=== PATIENT | female | born 1960 | race Caucasian/White ===

== ENCOUNTER 2021-02-20 15:07 | Inpatient (IN) ==
[2021-02-20] MEDS ORDERED: DEXTROSE 50% 25 GM/50 ML VIAL IV PRN (19:05)
[2021-02-20] MEDS ORDERED: GLUCAGON 1 MG VIAL IM PRN (19:05)
[2021-02-20] MEDS: HEPARIN 5,000 UNIT/1 ML VIAL SUBCUT SCH (21:52)
[2021-02-20] MEDS: SODIUM CHLORIDE 0.9% 1,000 ML IV SCH (21:52)
[2021-02-20] MEDS: ACETAMINOPHEN 325 MG TABLET PO PRN (21:53)
[2021-02-21 03:57] LABS: Basophils % 0.2 % (0.0-0.8); Eosinophils % 0.2 % (0.00-10.9); Hematocrit 23.1 VOL% (35.7-47.0); Hemoglobin 7.4 GM/DL (12.0-16.0); Immature Granulocytes % 0.2 %; Immature Granulocytes Absolute 0.01 #; Lymphocytes # 0.3 10*3/uL (1.4-4.0); Lymphocytes % 8.1 % (21.3-54.2); Mean Corpuscular Volume 105.5 FL (87-102); Mean Platelet Volume 10.9 FL (9.6-12.0); Monocytes % 7.6 % (1.7-12.7); Neutrophils % 83.7 % (38.7-73.9); Platelet Count 135 T/CUMM (130-400); Red Blood Count 2.19 MC/CUMM (3.8-5.5); Red Cell Distribution Width 15.2 % (9.3-17.3); White Blood Count 4.2 T/CUMM (4-12)
[2021-02-21 04:21] LABS: Hypochromasia 1+; Microcytosis 1+; Platelet Estimate Adequate
[2021-02-21 05:01] LABS: Alanine Aminotransferase 28 U/L (13-56); Alkaline Phosphatase 101 U/L (45-117); Aspartate Amino Transferase 39 U/L (0-37); Blood Urea Nitrogen 14 MG/DL (7-18); Calcium 7.5 MG/DL (8.5-10.1); Carbon Dioxide 32 MMOL/L (21-32); Glucose 71 MG/DL (74-106); Osmolality,Calculated 275.5 MOS/KG (273-304); Potassium 3.6 MMOL/L (3.5-5.1); Sodium 139 MMOL/L (136-145); Total Protein 4.4 G/DL (6.4-8.2)
[2021-02-21 05:02] LABS: Estimated Glom Filtration Rate 120 ML/MIN
[2021-02-21 08:44] LABS: % Iron Saturation 55.6 % (18-50); Ferritin 763.4 ng/ml (8-252)
[2021-02-21 08:52] LABS: Folate 3.4 NG/ML (5.38-24.0)
[2021-02-21] MEDS: HEPARIN 5,000 UNIT/1 ML VIAL SUBCUT SCH ×2 (09:29→22:23)
[2021-02-21] MEDS: ACETAMINOPHEN 325 MG TABLET PO PRN (10:22)
[2021-02-21] MEDS ORDERED: FOLIC ACID 1 MG TABLET PO SCH (11:00)
[2021-02-21] MEDS: FOLIC ACID 1 MG TABLET PO SCH (12:33)
[2021-02-21] MEDS: MULTIVITAMIN LIQUID (CENTRUM) 60 ML BOTTLE PO SCH (12:34)
[2021-02-21] MEDS ORDERED: MULTIVITAMIN LIQUID (CENTRUM) 60 ML BOTTLE PO SCH (14:00)
[2021-02-21] MEDS: THIAMINE 100 MG TABLET PO SCH (14:00)
[2021-02-21] MEDS ORDERED: ALUM/MAG/SIMETH/LIDO VISC 1:1 30 ML BOTTLE PO ONE (14:26)
[2021-02-22 06:09] LABS: Basophils % 0.4 % (0.0-0.8); Eosinophils % 0.2 % (0.00-10.9); Hematocrit 22.7 VOL% (35.7-47.0); Hemoglobin 7.2 GM/DL (12.0-16.0); Immature Granulocytes % 0.4 %; Immature Granulocytes Absolute 0.02 #; Lymphocytes # 0.5 10*3/uL (1.4-4.0); Lymphocytes % 10.5 % (21.3-54.2); Mean Corpuscular HGB Conc 31.7 GM/DL (32-36); Mean Corpuscular Volume 105.6 FL (87-102); Monocytes % 7.6 % (1.7-12.7); Neutrophils % 80.9 % (38.7-73.9); Platelet Count 159 T/CUMM (130-400); Red Blood Count 2.15 MC/CUMM (3.8-5.5); Red Cell Distribution Width 15.2 % (9.3-17.3); White Blood Count 4.6 T/CUMM (4-12)
[2021-02-22 07:09] LABS: Alanine Aminotransferase 31 U/L (13-56); Albumin 1.1 G/DL (3.4-5.0); Alkaline Phosphatase 108 U/L (45-117); Aspartate Amino Transferase 38 U/L (0-37); Blood Urea Nitrogen 15 MG/DL (7-18); Calcium 7.5 MG/DL (8.5-10.1); Carbon Dioxide 31 MMOL/L (21-32); Estimated Glom Filtration Rate 109 ML/MIN; Glucose 68 MG/DL (74-106); Osmolality,Calculated 277.4 MOS/KG (273-304); Sodium 140 MMOL/L (136-145); Total Protein 4.5 G/DL (6.4-8.2)
[2021-02-22] MEDS: PANTOPRAZOLE 40 MG TABLET PO SCH (08:45)
[2021-02-22] MEDS: HEPARIN 5,000 UNIT/1 ML VIAL SUBCUT SCH ×2 (08:45→21:09)
[2021-02-22] MEDS: THIAMINE 100 MG TABLET PO SCH (08:45)
[2021-02-22] MEDS: FOLIC ACID 1 MG TABLET PO SCH (08:45)
[2021-02-22] MEDS: MULTIVITAMIN LIQUID (CENTRUM) 60 ML BOTTLE PO SCH (09:41)
[2021-02-22] MEDS: IBUPROFEN 100 MG/5 ML UDCUP PO PRN ×2 (09:47→16:40)
[2021-02-22] MEDS ORDERED: ALBUTEROL 0.63 MG/3 ML NEB RESP TX ONE (11:11)
[2021-02-22] MEDS ORDERED: traMADol 50 MG TABLET PO PRN (11:41)
[2021-02-22] MEDS ORDERED: LOPERAMIDE 2 MG CAPSULE PO PRN ×2 (11:41)
[2021-02-22] MEDS ORDERED: ALPRAZolam 0.25 MG TABLET PO PRN (11:41)
[2021-02-22] MEDS ORDERED: MAGNESIUM HYDROXIDE SUSP 30 ML UDCUP PO PRN (11:41)
[2021-02-22] MEDS ORDERED: LACTULOSE 20 GM/30 ML UDCUP PO PRN (11:41)
[2021-02-22] MEDS ORDERED: ACETAMINOPHEN 325 MG TABLET PO PRN (11:41)
[2021-02-22] MEDS ORDERED: PROMETHAZINE INJ 25 MG in SODIUM CHLORIDE 0.9% 50 ML IV PRN (11:41)
[2021-02-22] MEDS ORDERED: guaiFENesin 200 MG/10 ML UDCUP PO PRN (11:41)
[2021-02-22] MEDS ORDERED: ALUMINUM/MAGNES/SIMETH MAX STR 30 ML UDCUP PO PRN (11:41)
[2021-02-22] MEDS ORDERED: chlorproMAZINE INJ 25 MG in SODIUM CHLORIDE 0.9% 100 ML IV PRN (11:41)
[2021-02-22] MEDS ORDERED: MYLANTA/LIDO VISC 2:1 300 ML BOTTLE SWISH/SPIT PRN (11:41)
[2021-02-22] MEDS ORDERED: MYLANTA/LIDO VISC 2:1 300 ML BOTTLE SWISH/SWAL PRN (11:41)
[2021-02-22] MEDS ORDERED: chlorproMAZINE INJ 50 MG in SODIUM CHLORIDE 0.9% 100 ML IV PRN (11:41)
[2021-02-22] MEDS ORDERED: diphenhydrAMINE CAP 25 MG CAPSULE PO PRN (11:41)
[2021-02-22] MEDS: ONDANSETRON 4 MG/2 ML VIAL IV PRN (12:18)
[2021-02-22] MEDS: ALBUTEROL 0.63 MG/3 ML NEB RESP TX SCH ×2 (13:03→19:40)
[2021-02-22] MEDS: SODIUM CHLORIDE 0.9% 1,000 ML IV SCH ×2 (19:33→21:18)
[2021-02-22] MEDS: TEMAZEPAM 7.5 MG CAPSULE PO PRN (21:09)
[2021-02-23 03:54] LABS: Basophils % 0.4 % (0.0-0.8); Eosinophils % 0.4 % (0.00-10.9); Hematocrit 23.9 VOL% (35.7-47.0); Hemoglobin 7.6 GM/DL (12.0-16.0); Immature Granulocytes % 0.6 %; Immature Granulocytes Absolute 0.03 #; Lymphocytes # 0.4 10*3/uL (1.4-4.0); Lymphocytes % 7.1 % (21.3-54.2); Mean Corpuscular HGB Conc 31.8 GM/DL (32-36); Mean Corpuscular Volume 106.2 FL (87-102); Mean Platelet Volume 10.4 FL (9.6-12.0); Monocytes % 7.5 % (1.7-12.7); Platelet Count 179 T/CUMM (130-400); Red Blood Count 2.25 MC/CUMM (3.8-5.5); Red Cell Distribution Width 15.1 % (9.3-17.3); White Blood Count 5.1 T/CUMM (4-12)
[2021-02-23 04:20] LABS: Albumin 1.2 G/DL (3.4-5.0); Bilirubin,Total 0.5 MG/DL (0.2-1.0); Calcium 7.1 MG/DL (8.5-10.1); Osmolality,Calculated 286.8 MOS/KG (273-304); Potassium 3.8 MMOL/L (3.5-5.1); Total Protein 4.8 G/DL (6.4-8.2)
[2021-02-23] MEDS: IBUPROFEN 100 MG/5 ML UDCUP PO PRN ×2 (05:05→21:37)
[2021-02-23] MEDS: ALBUTEROL 0.63 MG/3 ML NEB RESP TX SCH ×3 (07:33→19:20)
[2021-02-23] MEDS: THIAMINE 100 MG TABLET PO SCH (09:21)
[2021-02-23] MEDS: HEPARIN 5,000 UNIT/1 ML VIAL SUBCUT SCH (09:21)
[2021-02-23] MEDS: FOLIC ACID 1 MG TABLET PO SCH (09:21)
[2021-02-23] MEDS: MULTIVITAMIN LIQUID (CENTRUM) 60 ML BOTTLE PO SCH (09:21)
[2021-02-23] MEDS: PANTOPRAZOLE 40 MG TABLET PO SCH (09:21)
[2021-02-23 13:48] LABS: Barbiturates Screen,Urine Negative (Negative); Benzodiazepines Screen,Urine Negative (Negative); Cannabinoid Screen,Urine Negative (Negative); Opiate Screen,Urine Negative (Negative); Phencyclidine Screen,Urine Negative (Negative)
[2021-02-23] MEDS: TEMAZEPAM 7.5 MG CAPSULE PO PRN (21:37)
[2021-02-23] MEDS: SODIUM CHLORIDE 0.9% 1,000 ML IV SCH (21:38)
[2021-02-24 02:50] LABS: Basophils % 0.2 % (0.0-0.8); Hematocrit 22.7 VOL% (35.7-47.0); Hemoglobin 7.2 GM/DL (12.0-16.0); Immature Granulocytes % 0.5 %; Immature Granulocytes Absolute 0.06 #; Lymphocytes # 0.3 10*3/uL (1.4-4.0); Mean Corpuscular HGB Conc 31.7 GM/DL (32-36); Mean Corpuscular Volume 107.6 FL (87-102); Mean Platelet Volume 10.5 FL (9.6-12.0); Monocytes % 4.1 % (1.7-12.7); Neutrophils % 92.2 % (38.7-73.9); Platelet Count 155 T/CUMM (130-400); Red Blood Count 2.11 MC/CUMM (3.8-5.5); Red Cell Distribution Width 15.2 % (9.3-17.3); White Blood Count 11.2 T/CUMM (4-12)
[2021-02-24 03:12] LABS: Alanine Aminotransferase 22 U/L (13-56); Alkaline Phosphatase 111 U/L (45-117); Aspartate Amino Transferase 27 U/L (0-37); Bilirubin,Total < 0.39 MG/DL (0.2-1.0); Blood Urea Nitrogen 19 MG/DL (7-18); Calcium 7.6 MG/DL (8.5-10.1); Carbon Dioxide 32 MMOL/L (21-32); Estimated Glom Filtration Rate 109 ML/MIN; Glucose 94 MG/DL (74-106); Osmolality,Calculated 287.8 MOS/KG (273-304); Potassium 3.6 MMOL/L (3.5-5.1); Sodium 144 MMOL/L (136-145); Total Protein 4.5 G/DL (6.4-8.2)
[2021-02-24 03:36] LABS: Lymphocytes 2 % (20-55); Platelet Estimate Normal; Segmented Neutrophils 98 % (50-85); Total Cells Counted 100
[2021-02-24 03:37] LABS: Anisocytosis 1+; Hypochromasia 1+; Macrocytosis 2+
[2021-02-24 03:38] LABS: Stomatocytes Few
[2021-02-24] MEDS: ALBUTEROL 0.63 MG/3 ML NEB RESP TX SCH ×3 (07:35→20:29)
[2021-02-24] MEDS: SODIUM CHLORIDE 0.9% 1,000 ML IV SCH ×5 (07:46→20:30)
[2021-02-24] MEDS ORDERED: LACTATED RINGERS 1,000 ML IV SCH (08:00)
[2021-02-24] MEDS ORDERED: ALBUMIN 5% 12.5 GM/250 ML VIAL IV ONE (11:56)
[2021-02-24] MEDS: MULTIVITAMIN LIQUID (CENTRUM) 60 ML BOTTLE PO SCH (13:56)
[2021-02-24] MEDS: THIAMINE 100 MG TABLET PO SCH (13:57)
[2021-02-24] MEDS: PANTOPRAZOLE 40 MG TABLET PO SCH (13:57)
[2021-02-24] MEDS ORDERED: PHENYLEPHRINE 1 MG/10 ML SYRINGE IV ONE (14:01)
[2021-02-24] MEDS ORDERED: propofoL 200 MG/20 ML VIAL IV ONE (14:01)
[2021-02-24] MEDS ORDERED: LIDOCAINE 2% 5 ML VIAL ONE (14:01)
[2021-02-24] MEDS ORDERED: ETOMIDATE 20 MG/10 ML VIAL IV ONE ×2 (14:01→14:21)
[2021-02-24] MEDS: PANTOPRAZOLE 40 MG VIAL IV SCH (16:52)
[2021-02-24] MEDS: CLINDAMYCIN INJ 600 MG in PREMIX 1 EACH IV SCH (16:52)
[2021-02-24] MEDS ORDERED: ACETAMINOPHEN 325 MG SUPP RECTAL PRN (16:54)
[2021-02-24] MEDS ORDERED: ACETAMINOPHEN IV SCH (17:00)
[2021-02-24] MEDS: AMPICILLIN/SULBACTAM 1,500 MG in SODIUM CHLORIDE 0.9% 100 ML IV SCH (18:56)
[2021-02-24] MEDS: FOLIC ACID 1 MG TABLET PO SCH (20:30)
[2021-02-24] MEDS ORDERED: FOLIC ACID 1 MG TABLET PO SCH (21:00)
[2021-02-25] MEDS: CLINDAMYCIN INJ 600 MG in PREMIX 1 EACH IV SCH ×3 (01:50→17:45)
[2021-02-25] MEDS: AMPICILLIN/SULBACTAM 1,500 MG in SODIUM CHLORIDE 0.9% 100 ML IV SCH ×3 (02:20→18:46)
[2021-02-25] MEDS: SODIUM CHLORIDE 0.9% 1,000 ML IV SCH (06:25)
[2021-02-25] MEDS: ALBUTEROL 0.63 MG/3 ML NEB RESP TX SCH ×3 (07:01→19:29)
[2021-02-25] MEDS: PANTOPRAZOLE 40 MG VIAL IV SCH (08:22)
[2021-02-25 09:40] LABS: Hematocrit 22.2 VOL% (35.7-47.0); Hemoglobin 6.8 GM/DL (12.0-16.0); Immature Granulocytes % 0.5 %; Immature Granulocytes Absolute 0.04 #; Lymphocytes # 0.2 10*3/uL (1.4-4.0); Lymphocytes % 1.9 % (21.3-54.2); Mean Corpuscular HGB Conc 30.6 GM/DL (32-36); Mean Corpuscular Volume 110.4 FL (87-102); Mean Platelet Volume 10.8 FL (9.6-12.0); Monocytes % 4.2 % (1.7-12.7); Neutrophils % 93.4 % (38.7-73.9); Platelet Count 158 T/CUMM (130-400); Red Blood Count 2.01 MC/CUMM (3.8-5.5); Red Cell Distribution Width 15.1 % (9.3-17.3)
[2021-02-25 10:05] LABS: Lymphocytes 1 % (20-55); Platelet Estimate Adequate; Polychromasia Slight; Segmented Neutrophils 94 % (50-85); Total Cells Counted 100
[2021-02-25 10:06] LABS: Stomatocytes Few
[2021-02-25 10:27] LABS: Alanine Aminotransferase 26 U/L (13-56); Albumin 1.3 G/DL (3.4-5.0); Alkaline Phosphatase 99 U/L (45-117); Aspartate Amino Transferase 35 U/L (0-37); Bilirubin,Total < 0.39 MG/DL (0.2-1.0); Blood Urea Nitrogen 16 MG/DL (7-18); Calcium 7.3 MG/DL (8.5-10.1); Carbon Dioxide 27 MMOL/L (21-32); Glucose 68 MG/DL (74-106); Osmolality,Calculated 288.6 MOS/KG (273-304); Potassium 3.3 MMOL/L (3.5-5.1); Sodium 146 MMOL/L (136-145); Total Protein 4.4 G/DL (6.4-8.2)
[2021-02-25 10:28] LABS: Estimated Glom Filtration Rate 120 ML/MIN
[2021-02-25] MEDS ORDERED: SODIUM CHLORIDE 0.9% 1,000 ML IV PRN (11:05)
[2021-02-25] MEDS: POTASSIUM CHLORIDE RIDER 10 MEQ in PREMIX 1 EACH IV SCH ×2 (11:34→12:34)
[2021-02-25] MEDS: MULTIVITAMIN LIQUID (CENTRUM) 60 ML BOTTLE PO SCH (11:55)
[2021-02-25] MEDS: THIAMINE 100 MG TABLET PO SCH (11:55)
[2021-02-25] MEDS: MEGESTROL 400 MG/10 ML UDCUP PO SCH ×2 (11:55→20:53)
[2021-02-25] MEDS ORDERED: DEXTROSE 5% NACL 0.45% 1,000 ML IV SCH (13:30)
[2021-02-25] MEDS ORDERED: FUROSEMIDE 40 MG/4 ML VIAL IV ONE (15:51)
[2021-02-25] MEDS ORDERED: ALBUTEROL/IPRATROPIUM 3 ML NEB RESP TX ONE (15:52)
[2021-02-25] MEDS: HEPARIN 5,000 UNIT/1 ML VIAL SUBCUT SCH (20:43)
[2021-02-26] MEDS: CLINDAMYCIN INJ 600 MG in PREMIX 1 EACH IV SCH ×3 (00:25→17:15)
[2021-02-26] MEDS: AMPICILLIN/SULBACTAM 1,500 MG in SODIUM CHLORIDE 0.9% 100 ML IV SCH ×3 (01:12→17:56)
[2021-02-26 06:43] LABS: Basophils % 0.1 % (0.0-0.8); Hematocrit 30.5 VOL% (35.7-47.0); Hemoglobin 10.1 GM/DL (12.0-16.0); Immature Granulocytes % 0.6 %; Immature Granulocytes Absolute 0.06 #; Lymphocytes # 0.3 10*3/uL (1.4-4.0); Lymphocytes % 3.1 % (21.3-54.2); Mean Corpuscular HGB Conc 33.1 GM/DL (32-36); Mean Corpuscular Volume 101.3 FL (87-102); Mean Platelet Volume 10.9 FL (9.6-12.0); Monocytes % 5.5 % (1.7-12.7); Neutrophils % 90.7 % (38.7-73.9); Platelet Count 189 T/CUMM (130-400); Red Blood Count 3.01 MC/CUMM (3.8-5.5)
[2021-02-26] MEDS: ALBUTEROL 0.63 MG/3 ML NEB RESP TX SCH ×3 (07:15→19:56)
[2021-02-26 07:20] LABS: Alanine Aminotransferase 25 U/L (13-56); Albumin 1.4 G/DL (3.4-5.0); Alkaline Phosphatase 113 U/L (45-117); Aspartate Amino Transferase 37 U/L (0-37); Blood Urea Nitrogen 15 MG/DL (7-18); Calcium 8.1 MG/DL (8.5-10.1); Carbon Dioxide 28 MMOL/L (21-32); Estimated Glom Filtration Rate 109 ML/MIN; Glucose 71 MG/DL (74-106); Osmolality,Calculated 284.8 MOS/KG (273-304); Potassium 3.2 MMOL/L (3.5-5.1); Sodium 144 MMOL/L (136-145); Total Protein 4.8 G/DL (6.4-8.2)
[2021-02-26] MEDS: DEXTROSE 5% NACL 0.45% 1,000 ML IV SCH ×2 (08:35→21:03)
[2021-02-26] MEDS: PANTOPRAZOLE 40 MG VIAL IV SCH (08:36)
[2021-02-26] MEDS: HEPARIN 5,000 UNIT/1 ML VIAL SUBCUT SCH ×2 (08:42→20:04)
[2021-02-26 09:39] LABS: Lymphocytes 4 % (20-55); Segmented Neutrophils 90 % (50-85); Total Cells Counted 100
[2021-02-26 09:40] LABS: Platelet Estimate Adequate; Polychromasia Slight
[2021-02-26] MEDS: MEGESTROL 400 MG/10 ML UDCUP PO SCH ×2 (10:14→20:55)
[2021-02-26] MEDS: POTASSIUM CHLORIDE RIDER 10 MEQ in PREMIX 1 EACH IV SCH ×4 (11:02→15:17)
[2021-02-26] MEDS ORDERED: POTASSIUM CHLORIDE RIDER 10 MEQ in PREMIX 1 EACH IV SCH (15:30)
[2021-02-26] MEDS: KETOROLAC 30 MG/1 ML VIAL IV PRN (17:54)
[2021-02-27] MEDS: CLINDAMYCIN INJ 600 MG in PREMIX 1 EACH IV SCH ×3 (00:16→16:54)
[2021-02-27] MEDS: AMPICILLIN/SULBACTAM 1,500 MG in SODIUM CHLORIDE 0.9% 100 ML IV SCH ×3 (01:38→18:01)
[2021-02-27 05:50] LABS: Basophils % 0.2 % (0.0-0.8); Eosinophils % 0.7 % (0.00-10.9); Hematocrit 27.7 VOL% (35.7-47.0); Hemoglobin 8.9 GM/DL (12.0-16.0); Immature Granulocytes % 0.7 %; Immature Granulocytes Absolute 0.03 #; Lymphocytes # 0.3 10*3/uL (1.4-4.0); Lymphocytes % 6.6 % (21.3-54.2); Mean Corpuscular HGB Conc 32.1 GM/DL (32-36); Mean Corpuscular Volume 102.2 FL (87-102); Mean Platelet Volume 11.2 FL (9.6-12.0); Monocytes % 7.7 % (1.7-12.7); Neutrophils % 84.1 % (38.7-73.9); Platelet Count 145 T/CUMM (130-400); Red Blood Count 2.71 MC/CUMM (3.8-5.5); Red Cell Distribution Width 16.1 % (9.3-17.3); White Blood Count 4.4 T/CUMM (4-12)
[2021-02-27 06:02] LABS: Blood Urea Nitrogen 14 MG/DL (7-18); Calcium 7.8 MG/DL (8.5-10.1); Carbon Dioxide 30 MMOL/L (21-32); Estimated Glom Filtration Rate 109 ML/MIN; Glucose 84 MG/DL (74-106); Osmolality,Calculated 285.8 MOS/KG (273-304); Potassium 3.6 MMOL/L (3.5-5.1); Sodium 144 MMOL/L (136-145)
[2021-02-27] MEDS: ALBUTEROL 0.63 MG/3 ML NEB RESP TX SCH ×3 (07:25→20:08)
[2021-02-27] MEDS: PANTOPRAZOLE 40 MG VIAL IV SCH (09:19)
[2021-02-27] MEDS: MEGESTROL 400 MG/10 ML UDCUP PO SCH ×2 (09:19→20:34)
[2021-02-27] MEDS: HEPARIN 5,000 UNIT/1 ML VIAL SUBCUT SCH ×2 (09:19→20:34)
[2021-02-27] MEDS: ONDANSETRON 4 MG/2 ML VIAL IV PRN (09:31)
[2021-02-27] MEDS: DEXTROSE 5% NACL 0.45% 1,000 ML IV SCH ×2 (14:41→22:53)
[2021-02-27] MEDS: KETOROLAC 30 MG/1 ML VIAL IV PRN (16:54)
[2021-02-28] MEDS: CLINDAMYCIN INJ 600 MG in PREMIX 1 EACH IV SCH ×2 (01:01→09:13)
[2021-02-28] MEDS: AMPICILLIN/SULBACTAM 1,500 MG in SODIUM CHLORIDE 0.9% 100 ML IV SCH ×2 (02:47→11:07)
[2021-02-28 05:06] LABS: Eosinophils # 0.1 10*3/uL (0.0-0.87); Eosinophils % 1.6 % (0.00-10.9); Hematocrit 29.2 VOL% (35.7-47.0); Hemoglobin 9.3 GM/DL (12.0-16.0); Immature Granulocytes % 0.5 %; Immature Granulocytes Absolute 0.02 #; Lymphocytes # 0.3 10*3/uL (1.4-4.0); Lymphocytes % 7.8 % (21.3-54.2); Mean Corpuscular HGB Conc 31.8 GM/DL (32-36); Mean Corpuscular Volume 103.5 FL (87-102); Mean Platelet Volume 10.6 FL (9.6-12.0); Monocytes % 8.9 % (1.7-12.7); Neutrophils % 81.2 % (38.7-73.9); Platelet Count 148 T/CUMM (130-400); Red Blood Count 2.82 MC/CUMM (3.8-5.5); Red Cell Distribution Width 15.5 % (9.3-17.3); White Blood Count 4.4 T/CUMM (4-12)
[2021-02-28] MEDS: ALBUTEROL 0.63 MG/3 ML NEB RESP TX SCH ×2 (08:03→13:47)
[2021-02-28] MEDS: DEXTROSE 5% NACL 0.45% 1,000 ML IV SCH (09:04)
[2021-02-28] MEDS: MEGESTROL 400 MG/10 ML UDCUP PO SCH (09:11)
[2021-02-28] MEDS: HEPARIN 5,000 UNIT/1 ML VIAL SUBCUT SCH (09:11)
[2021-02-28] MEDS: ONDANSETRON 4 MG/2 ML VIAL IV PRN (09:12)
[2021-02-28] MEDS: PANTOPRAZOLE 40 MG VIAL IV SCH (09:12)
[2021-02-28] MEDS ORDERED: HEPARIN LOCK FLUSH 500 UNIT/5 ML SYRINGE IV ONE (12:00)
[2021-02-28 13:02] VITALS: BP 92/65
== END 2021-02-28 16:50 | disposition home health service (06) | DRG 242 ==
LOC: N.4E → SUATTDRO 15:29 → N.ICU 02-24 15:34 → SUATTDRO 02-24 16:00 → N.4E 02-25 18:12
PROVIDERS: ADMIT Internal Medicine; ATTEND Internal Medicine